=== PATIENT | male | born 1955 | race Hispanic/Latino ===

== ENCOUNTER 2017-01-07 15:19 | Outpatient (CLI) | payer BC ==
--- NOTE | 2017-01-07 15:36 | XRay Report ---
RIGHT SHOULDER RADIOGRAPHS INDICATION: Shoulder pain. COMPARISON: None similar at this institution. FINDINGS: Frontal and Y views of the right shoulder, 3 projections demonstrate normal humeral head contour, well positioned against the glenoid. Intact acromioclavicular joint with slight spurring. Preserved scapular contour. Normal visualized soft tissues, right ribs and lung. Demineralized bones. CONCLUSION: No acute right shoulder radiographic abnormality, as described. Thank you for the opportunity to participate in this patient's care.
== END 2017-01-07 15:20 | disposition home or self-care (01) ==
LOC: SPVIMAG 15:19
PROVIDERS: ATTEND Orthopaedic Surgery Sports Medicine
DX: M25.511 Pain in right shoulder (principal)